=== PATIENT | male | born 1990 | race Caucasian/White ===

== ENCOUNTER 2017-09-23 20:14 | Emergency (ER) | payer MEDICAID, OTHER ==
[~2017-09-23] VITALS: Ht 182.9 cm; Wt 74.8 kg
[2017-09-23 20:26] VITALS: BP 124/79
[2017-09-23] MEDS ORDERED: LIDOCAINE/EPI 1% 1:100000 20 ML VIAL INJ ONE (21:35)
[2017-09-23] MEDS ORDERED: KETOROLAC 30 MG/ML VIAL IM ONE (21:50)
[2017-09-23] MEDS ORDERED: BACITRACIN OINT 500 UNITS/GM PKT TP ONE (22:35)
[2017-09-23 22:40] VITALS: BP 141/71
== END 2017-09-23 22:41 | disposition home or self-care (01) ==
LOC: MED 20:14
DX: S61.012A Laceration without foreign body of left thumb without damage to nail, initial encounter (principal); W27.8XXA Contact with other nonpowered hand tool, initial encounter; Y93.89 Activity, other specified; Y92.89 Other specified places as the place of occurrence of the external cause; Y99.8 Other external cause status
CPT/HCPCS: 12002; 73130; 90471; 90715; 96372; 99284; J1885; J2001

== ENCOUNTER 2017-10-22 03:20 | Emergency (ER) | payer MEDICAID ==
[~2017-10-22] VITALS: Ht 180.3 cm; Wt 72.6 kg
[2017-10-22 03:25] VITALS: BP 127/73
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
--- NOTE | 2017-10-22 03:36 | NUR ---
PT AMBULATED TO BED 11 WITH VSS.
[2017-10-22] MEDS ORDERED: KETOROLAC 30 MG/ML VIAL IM ONE (03:50)
[2017-10-22 04:32] VITALS: BP 120/80
== END 2017-10-22 04:32 | disposition home or self-care (01) ==
LOC: MED 03:20
DX: S63.502A Unspecified sprain of left wrist, initial encounter (principal); X58.XXXA Exposure to other specified factors, initial encounter; Y93.89 Activity, other specified; Y92.89 Other specified places as the place of occurrence of the external cause; Y99.8 Other external cause status
CPT/HCPCS: 29125; 73110; 96372; 99284; J1885; Q0092

== ENCOUNTER 2023-11-19 02:15 | Emergency (ER) | payer MEDICAID ==
[~2023-11-19] VITALS: Ht 182.9 cm; Wt 90.7 kg
[2023-11-19 02:17] VITALS: BP 148/96; PULSE 88; RESP 16; TEMP 98.3; O2SAT 98
== END 2023-11-19 02:27 | disposition left against medical advice (07) ==
LOC: MED 02:15
DX: T40.2X4A Poisoning by other opioids, undetermined, initial encounter (principal); T39.1X4A Poisoning by 4-Aminophenol derivatives, undetermined, initial encounter; Z53.21 Procedure and treatment not carried out due to patient leaving prior to being seen by health care provider; Y92.89 Other specified places as the place of occurrence of the external cause